=== PATIENT | male | born 1950 | race Two or more races ===

== ENCOUNTER 2024-12-09 09:10 | Day surgery (SDC) | payer MEDICARE, MEDICAID, SELFPAY ==
[2024-12-09] VITALS (10 sets, daily range): BP systolic 117–150; BP diastolic 60–87; PULSE 61–78; RESP 13–27; TEMP 36.4–36.6; O2SAT 95–100; BMI 30.6
[2024-12-09] MEDS: MIDAZOLAM INJ 1 MG/ML VIAL 2 ML (ASD USE ONLY) 2 MG IV (11:12)
[2024-12-09] MEDS: fentaNYL CIT INJ 50 mCg/ML AMP 2ML (ASD USE ONLY) IV (11:13)
[2024-12-09] MEDS: DiphenhydrAMINE INJ 50 MG/ML VIAL 25 MG IV (11:13)
[2024-12-09] MEDS: SODIUM CHLORIDE 0.9% 100 ML IV (11:13)
== END 2024-12-09 12:00 | disposition home or self-care (01) ==
PROVIDERS: PCP Nurse Practitioner Family; Referring Provider Internal Medicine Gastroenterology; Visit Provider Internal Medicine Gastroenterology
PROC: 0DBE8ZX Excision of Large Intestine, Via Natural or Artificial Opening Endoscopic, Diagnostic (ICD-10-PCS; CPT 45380; principal; 2024-12-09 12:30)
DX: Z12.11 Encounter for screening for malignant neoplasm of colon (principal); K64.1 Second degree hemorrhoids; K57.30 Diverticulosis of large intestine without perforation or abscess without bleeding; I10 Essential (primary) hypertension; E11.9 Type 2 diabetes mellitus without complications
CPT/HCPCS: G0121; J1200; J2250; J3010; J7050